=== PATIENT | female | born 1990 | race American Indian/Alaskan Native ===

== ENCOUNTER 2017-09-02 21:02 | Emergency (ER) | payer BC ==
--- NOTE | 2017-09-02 22:21 | Emergency Department Report ---
ED Headache HPI - General Chief Complaint: Headache Stated Complaint: HEADACHE Time Seen by Provider: 09/02/17 22:02 - History of Present Illness Initial Comments: Patient is a 26-year-old female presents to ED complaining of temporal, nonradiating, sharp, stabbing, 9 out of 10 intensity headache x 3 days. Patient states pain is worse than her usual migraines. Patient states the pain is worsened with certain movements of the head. She states pain is localized to in the temporal regions. Patient denies fevers/chills/nausea/vomiting/blurry vision/dizziness/chest pain or shortness of breath. She denies any trauma or falls. Quality: constant, pressure, stabbing Head Injury Location: temporal Recent Head Trauma: no recent headache/trauma Allergies/Adverse Reactions: Allergies No Known Allergies Allergy (Verified 09/02/17 21:16) Home Medications: Ambulatory Orders Ibuprofen [Motrin] 800 mg PO TID PRN 04/26/14 methOCARBAMOL [Robaxin TAB] 500 mg PO TID PRN 04/26/14 Amoxicillin/Potassium Clav [Augmentin 875-125 Tablet] 1 each PO BID #20 tablet 09/02/17 Pseudoephedrine ER [Sudafed 12 Hr] 120 mg PO Q12HR PRN 3 Days #6 tablet ED Review of Systems ROS: Stated complaint: HEADACHE Other details as noted in HPI Constitutional: denies: chills, fever Eyes: denies: eye pain, eye discharge, vision change ENT: denies: ear pain, throat pain Respiratory: denies: cough, shortness of breath, wheezing Cardiovascular: denies: chest pain, palpitations Endocrine: no symptoms reported Gastrointestinal: denies: abdominal pain, nausea, vomiting, diarrhea Genitourinary: denies: urgency, dysuria, frequency, hematuria, discharge Musculoskeletal: denies: back pain, joint swelling, arthralgia Skin: denies: rash, lesions Neurological: headache. denies: weakness, numbness, paresthesias, confusion Psychiatric: denies: anxiety, depression Hematological/Lymphatic: denies: easy bleeding, easy bruising ED Past Medical Hx - Past Medical History Previous Medical History?: No - Surgical History Additional Surgical History: - Social History Smoking Status: Never Smoker Substance Use Type: None - Medications Home Medications: Home Medications Medication Instructions Recorded Confirmed Last Taken Type Ibuprofen [Motrin] 800 mg PO TID PRN 04/26/14 04/26/14 04/26/14 09:20 History methOCARBAMOL [Robaxin TAB] 500 mg PO TID PRN 04/26/14 04/26/14 04/26/14 09:20 History Amoxicillin/Potassium Clav 1 each PO BID #20 tablet 09/02/17 Unknown Rx [Augmentin 875-125 Tablet] Pseudoephedrine ER [Sudafed 12 Hr] 120 mg PO Q12HR PRN 3 Days #6 09/02/17 Unknown Rx tablet ED Physical Exam - General Limitations: No Limitations General appearance: alert, in no apparent distress - Head Head exam: Present: atraumatic, normocephalic - Eye Eye exam: Present: normal appearance, PERRL, EOMI. Absent: conjunctival injection, nystagmus Pupils: Present: normal accommodation - ENT ENT exam: Present: mucous membranes moist - Neck Neck exam: Present: normal inspection. Absent: tenderness, lymphadenopathy - Respiratory Respiratory exam: Present: normal lung sounds bilaterally. Absent: respiratory distress, wheezes - Cardiovascular Cardiovascular Exam: Present: regular rate, normal rhythm. Absent: systolic murmur, diastolic murmur, rubs, gallop - GI/Abdominal GI/Abdominal exam: Present: soft, normal bowel sounds - Extremities Exam Extremities exam: Present: normal inspection - Back Exam Back exam: Present: normal inspection, full ROM. Absent: CVA tenderness (R), CVA tenderness (L) - Neurological Exam Neurological exam: Present: alert, oriented X3, CN II-XII intact, normal gait - Expanded Neurological Exam Expanded Patient oriented to: Present: person, place, time Speech: Present: fluid speech Cerebellar function: Finger to Nose: Normal, Heel to [place]: Normal Sensory exam: Upper Extremity Light Touch: Normal, Lower Extremity Temperature: Normal Motor strength exam: RUE: 5, LUE: 5, RLE: 5, LLE: 5 - Psychiatric Psychiatric exam: Present: normal affect, normal mood - Skin Skin exam: Present: warm, dry, intact, normal color. Absent: rash ED Course Vital Signs 09/02/17 09/02/17 21:14 21:16 Temperature 98.6 F 98.6 F Pulse Rate 116 H 115 H Respiratory 18 18 Rate Blood Pressure 130/78 130/78 O2 Sat by Pulse 99 98 Oximetry ED Medical Decision Making - Radiology Data Radiology results: report reviewed, image reviewed Cat Scan Report Signed Patient: JEWELL HOLLINGSWORTH MR#: [id number] : 1990 Acct:[id number] Age/Sex: 26 / F ADM Date: 09/02/17 Loc: ED Attending Dr: Ordering Physician: CATHERINE CARRASCO Date of Service: 09/02/17 Procedure(s): CT head/brain wo con Accession Number(s): [id number] cc: CATHERINE CARRASCO FINAL REPORT PROCEDURE: CT HEAD/BRAIN WO CON TECHNIQUE: Computerized tomography of the head was performed without contrast material. HISTORY: worsening headache COMPARISON: No prior studies are available for comparison. FINDINGS: Skull and scalp: Normal. Paranasal sinuses: There is fluid in the sphenoid sinus per. Ventricles and subarachnoid spaces: Normal. Cerebrum: No evidence of hemorrhage, acute infarction or mass . Cerebellum and brainstem: No evidence of hemorrhage, acute infarction or mass. Vasculature: Normal. Comments: None. IMPRESSION: There is no intracranial hemorrhage, edema, mass, mass effect or midline shift. There is sphenoid sinusitis. Transcribed By: CO Dictated By: JUAN MAGALLON MD Electronically Authenticated By: JUAN MAGALLON MD Signed Date/Time: 09/02/171911 - Medical Decision Making 26 -year-old female present with sphenoid sinusitis ED course: The patient received Sudafed in the ED CT of the head shows no acute bleed. This dictated sphenoid sinusitis; SEE above I discussed findings with the patient. Discussed the patient takes medications as prescribed. The patient will follow up with primary care physician patient return to ED if any worsening symptoms. Vital signs are normal, patient is in no acute distress, she has no neuro deficits and understands all instructions given - Differential Diagnosis 1. Sinusitis 2.Acute headache 3.Migraine Critical care attestation.: If time is entered above; I have spent that time in minutes in the direct care of this critically ill patient, excluding procedure time. ED Disposition Clinical Impression: Sinusitis chronic, sphenoidal Disposition: DC-01 TO HOME OR SELFCARE Is pt being admited?: No Does the pt Need Aspirin: No Condition: Stable Instructions: Sinusitis (ED), Acute Bacterial Rhinosinusitis (ED) Additional Instructions: Make sure to follow up with the primary care physician as discussed. Take all your medications as you've been prescribed. If you have any worsening symptoms or develop new symptoms please return to ED immediately. Prescriptions: Amoxicillin/Potassium Clav [Augmentin 875-125 Tablet] 1 each PO BID #20 tablet Pseudoephedrine ER [Sudafed 12 Hr] 120 mg PO Q12HR PRN 3 Days #6 tablet PRN Reason: Allergy Symptoms Referrals: PRIMARY CARE, [Primary Care Provider] - 3-5 Days [facility] [Outside] - 3-5 Days [facility] [Outside] - 3-5 Days [facility] [Outside] - 3-5 Days Forms: Accompanied Note, Work/School Release Form(ED) Time of Disposition: 23:48
[2017-09-02] MEDS ORDERED: SUDAFED 12 HR PO PRN (22:34)
--- NOTE | 2017-09-02 23:15 | Cat Scan Report ---
FINAL REPORT PROCEDURE: CT HEAD/BRAIN WO CON TECHNIQUE: Computerized tomography of the head was performed without contrast material. HISTORY: worsening headache COMPARISON: No prior studies are available for comparison. FINDINGS: Skull and scalp: Normal. Paranasal sinuses: There is fluid in the sphenoid sinus per. Ventricles and subarachnoid spaces: Normal. Cerebrum: No evidence of hemorrhage, acute infarction or mass . Cerebellum and brainstem: No evidence of hemorrhage, acute infarction or mass. Vasculature: Normal. Comments: None. IMPRESSION: There is no intracranial hemorrhage, edema, mass, mass effect or midline shift. There is sphenoid sinusitis.
[2017-09-02] MEDS ORDERED: MOTRIN PO ONE (23:59)
[2017-09-03 00:23] VITALS: BP 127/73
== END 2017-09-03 00:23 | disposition home or self-care (01) ==
LOC: ED 21:02
DX: J32.3 Chronic sphenoidal sinusitis (principal)
CPT/HCPCS: 70450

== ENCOUNTER 2018-01-10 20:33 | Emergency (ER) | payer SELFPAY ==
[2018-01-10] MEDS ORDERED: NACL 0.9% 1000 ML 1,000 ML IV ONE (21:58)
[2018-01-10] MEDS ORDERED: ZOFRAN IV ONE (21:58)
[2018-01-10] MEDS ORDERED: MORPHINE IV ONE (21:58)
--- NOTE | 2018-01-10 22:03 | Emergency Department Report ---
ED Headache HPI - General Chief Complaint: Headache Stated Complaint: Nausea/Vomiting Time Seen by Provider: 01/10/18 21:52 Source: patient - History of Present Illness Initial Comments: Patient is 27-year-old female with history of chronic headache. Patient was recently discharged from the [place] after she was admitted for headache workup and she found that she have idiopathic intracranial hypertension, patient had a lumbar puncture and they took some fluids. Patient stated that her headache is worse today and associated with vomiting. She denied any fever, neck pain or neck stiffness. Patient denied any weakness numbness or tingling sensation. Quality: moderate Recent Head Trauma: no recent headache/trauma, chronic headaches Associated Symptoms: nausea/vomiting. denies: denies symptoms, confusion, fatigue, facial pain, fever/chills, flushing, loss of consciousness, nasal congestion, nasal drainage, numbness in legs/feet, rash, seizures, sinus infection, stiff neck, vision changes, weakness, other Allergies/Adverse Reactions: Allergies No Known Allergies Allergy (Verified 09/02/17 21:16) Home Medications: Ambulatory Orders Ibuprofen [Motrin] 800 mg PO TID PRN 04/26/14 methOCARBAMOL [Robaxin TAB] 500 mg PO TID PRN 04/26/14 Amoxicillin/Potassium Clav [Augmentin 875-125 Tablet] 1 each PO BID #20 tablet 09/02/17 Pseudoephedrine ER [Sudafed 12 Hr] 120 mg PO Q12HR PRN 3 Days #6 tablet ED Review of Systems ROS: Stated complaint: Nausea/Vomiting Other details as noted in HPI Comment: All other systems reviewed and negative Constitutional: denies: chills, fever Respiratory: denies: shortness of breath, SOB with exertion, wheezing Cardiovascular: denies: chest pain, palpitations, dyspnea on exertion, orthopnea Gastrointestinal: denies: abdominal pain, nausea, vomiting, diarrhea, constipation, hematemesis, melena, hematochezia Genitourinary: denies: urgency, dysuria, frequency, hematuria, discharge Neurological: headache. denies: weakness, numbness, paresthesias, confusion, abnormal gait ED Past Medical Hx - Past Medical History Previous Medical History?: No - Surgical History Past Surgical History?: Yes Additional Surgical History: - Social History Smoking Status: Never Smoker Substance Use Type: None - Medications Home Medications: Home Medications Medication Instructions Recorded Confirmed Last Taken Type Ibuprofen [Motrin] 800 mg PO TID PRN 04/26/14 04/26/14 04/26/14 09:20 History methOCARBAMOL [Robaxin TAB] 500 mg PO TID PRN 04/26/14 04/26/14 04/26/14 09:20 History Amoxicillin/Potassium Clav 1 each PO BID #20 tablet 09/02/17 Unknown Rx [Augmentin 875-125 Tablet] Pseudoephedrine ER [Sudafed 12 Hr] 120 mg PO Q12HR PRN 3 Days #6 09/02/17 Unknown Rx tablet ED Physical Exam - General Limitations: No Limitations General appearance: alert, in no apparent distress - Head Head exam: Present: atraumatic, normocephalic, normal inspection - Eye Eye exam: Present: normal appearance, PERRL - ENT ENT exam: Present: normal exam, normal orophraynx, mucous membranes moist - Neck Neck exam: Present: normal inspection, full ROM. Absent: tenderness, meningismus, lymphadenopathy, thyromegaly - Respiratory Respiratory exam: Present: normal lung sounds bilaterally. Absent: respiratory distress, wheezes, rales, rhonchi, stridor, decreased breath sounds, prolonged expiratory - Cardiovascular Cardiovascular Exam: Present: regular rate, normal rhythm, normal heart sounds - GI/Abdominal GI/Abdominal exam: Present: soft. Absent: distended, tenderness, guarding, rebound, rigid, normal bowel sounds, mass, bruit, pulsatile mass - Extremities Exam Extremities exam: Present: normal inspection, full ROM, normal capillary refill - Back Exam Back exam: Present: normal inspection, full ROM. Absent: tenderness, CVA tenderness (R), CVA tenderness (L) - Neurological Exam Neurological exam: Present: alert, oriented X3, CN II-XII intact, normal gait - Skin Skin exam: Present: warm, intact, normal color ED Course Vital Signs 01/10/18 21:06 Temperature 98.8 F Pulse Rate 96 H Respiratory 24 Rate Blood Pressure 131/85 [Left] O2 Sat by Pulse 100 Oximetry - Reevaluation(s) Reevaluation #1: 01/10/18 23:41 Patient stated that she is feeling much better. Headache resolved. Patient is still denying any neck pain or neck stiffness. No fever. Anesthesia came to evaluate patient for blood patch that they stated that that uncomfortable doing the procedure now in the 1 the patient to follow[facility] with [facility]. ED Medical Decision Making - Lab Data Result diagrams: 01/10/18 22:28 01/10/18 22:28 Critical care attestation.: If time is entered above; I have spent that time in minutes in the direct care of this critically ill patient, excluding procedure time. ED Disposition Clinical Impression: Headache, post-lumbar puncture, Headache Disposition: - TO HOME OR SELFCARE Is pt being admited?: No Condition: Stable Instructions: Lumbar Puncture (ED), Acute Headache (ED) Referrals: ZAHIDA AVILA MD [Primary Care Provider] - 3-5 Days
[2018-01-10 22:56] LABS: Basophils % (Auto) 0.1 % (0.0-1.8); Hemoglobin 14.1 gm/dl (10.1-14.3); Lymphocytes # (Auto) 1.2 K/mm3 (1.2-5.4); Lymphocytes % (Auto) 8.6 % (13.4-35.0); Mean Corpuscular HGB Conc 33 % (30-34); Mean Corpuscular Hemoglobin 26 pg (28-32); Mean Corpuscular Volume 79 fl (79-97); Monocytes # (Auto) 0.5 K/mm3 (0.0-0.8); Monocytes % (Auto) 3.5 % (0.0-7.3); Platelet Count 224 K/mm3 (140-440); Red Blood Count 5.46 M/mm3 (3.65-5.03)
[2018-01-10 23:09] LABS: Alanine Aminotransferase 21 units/L (7-56); Albumin 4.4 g/dL (3.9-5); BUN/Creatinine Ratio 11; Blood Urea Nitrogen 9 mg/dL (7-17); Calcium 9.5 mg/dL (8.4-10.2); Hemolysis Index 4
[2018-01-11 00:02] VITALS: BP 139/79
[2018-01-11] MEDS ORDERED: MORPHINE IV ONE (01:15)
== END 2018-01-11 01:39 | disposition home or self-care (01) ==
LOC: ED 20:33
DX: R51 Headache (principal); R11.2 Nausea with vomiting, unspecified
CPT/HCPCS: 36415; 80053; 85025; 96361; 96374; 96375; 96376; 99284; J2270; J2405; J7030

== ENCOUNTER 2021-05-23 15:20 | Emergency (ER) | payer OTHER, MEDICAID ==
[2021-05-23 15:57] VITALS: BP 125/77
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
== END 2021-05-23 18:01 | disposition home or self-care (01) ==
LOC: ED 15:20
DX: S39.012A Strain of muscle, fascia and tendon of lower back, initial encounter (principal); Z88.8 Allergy status to other drugs, medicaments and biological substances; Z79.899 Other long term (current) drug therapy; Z98.890 Other specified postprocedural states; V49.49XA Driver injured in collision with other motor vehicles in traffic accident, initial encounter; Y92.410 Unspecified street and highway as the place of occurrence of the external cause; Y93.89 Activity, other specified; Y99.8 Other external cause status
CPT/HCPCS: 72072; 72100